=== PATIENT | male | born 1980 ===

== ENCOUNTER → 2018-03-08 | Outpatient (REF) | payer OTHER ==
[2018-03-08 10:07] LABS: SEMEN APPEARANCE OPAQUE (OPAQUE); SEMEN VISCOSITY LIQUID (LIQUID); SEMEN VOLUME 3.8 ml (4.0-5.0)
[2018-03-08 10:08] LABS: % NORMAL FORMS 15 % (>=4); IMMOTILITY 34 %; NON PROGRESSIVE MOTILITY (c) 7 %; PROGRESSIVE MOTILITY (a) 59 % (>=32); SPERM ABNORMAL FORMS OTHER (SPECIFIY); SPERM CONCENTRATION 206.6 M/ml (>=15.0); TOTAL FUNCTIONAL 146.5 M/Ejac.; TOTAL MOTILITY 66 % (>=40); TOTAL PROGRESSIVE SPERM 464.1 M/Ejac.; WBC CONCENTRATION >1 M/ml (<=1 M/ml)
== END ==
LOC: M LAB REF 09:57
DX: Z30.9 Encounter for contraceptive management, unspecified (principal)
CPT/HCPCS: 89320

== ENCOUNTER → 2018-04-03 | Outpatient (REF) | payer OTHER ==
[2018-04-03 17:32] LABS: SEMEN APPEARANCE OPAQUE (OPAQUE); SEMEN VISCOSITY LIQUID (LIQUID); SEMEN VOLUME 2.5 ml (4.0-5.0); SEMEN pH 7.5 (7.0-8.0); WBC CONCENTRATION >1 M/ml (<=1 M/ml)
[2018-04-03 17:33] LABS: % NORMAL FORMS 24 % (>=4); IMMOTILITY 17 %; NON PROGRESSIVE MOTILITY (c) 8 %; PROGRESSIVE MOTILITY (a) 75 % (>=32); SPERM CONCENTRATION 156.1 M/ml (>=15.0); SPERM# 390.2 M/Ejac (>=39); TOTAL MOTILITY 83 % (>=40)
[2018-04-03 17:34] LABS: TOTAL FUNCTIONAL 129.5 M/Ejac.; TOTAL PROGRESSIVE SPERM 291.4 M/Ejac.
== END ==
LOC: M LAB REF 15:39
DX: N46.9 Male infertility, unspecified (principal)